=== PATIENT | female | born 1950 | race Caucasian/White ===

== ENCOUNTER 2017-02-27 19:21 | Inpatient (IN) ==
[2017-02-27] MEDS ORDERED: methylPREDNISolone 125 MG/2 ML VIAL IVP ONE (19:22)
[2017-02-27] MEDS ORDERED: Ipratropium/Albuterol Neb 3 ML IH ONE ×2 (19:22→21:09)
--- NOTE | 2017-02-27 19:25 | Emergency Department Note ---
Disposition Clinical Impression: Hypoxia, COPD exacerbation Disposition: Admitted As Inpatient Condition: Good SOB HPI - General Chief Complaint: ED Shortness of Breath/Dyspnea Stated Complaint: PATRICE Time Seen by Provider: 02/27/17 19:23 Source: patient, EMS Mode of arrival: EMS Limitations: no limitations Nursing Notes Reviewed: Yes Vital Signs Reviewed: Yes - History of Present Illness 66-year-old female history of hypertension, COPD with O2 requirement at night who presents to the ER via EMS with a chief complaint of shortness of breath. Patient reports she started getting short of breath yesterday afternoon. Patient reports that it seemed to worsen throughout the night into today. She reports a productive cough with yellow sputum. She denies any fevers or chest pain at home. She has no history of cardiac disease, DVT, PE. When EMS arrived to her house she was hypoxic at 79% on room air. Patient improved with 6 L nasal cannula. She reports prior hospitalization for her COPD. She denies previous intubation for COPD. No other complaints. Pt Subjective Complaint: shortness of breath Onset (ago): day(s) (1) Severity: severe Consistency/Duration: constant Improves with: oxygen Worsens with: nothing Known history of: COPD Associated symptoms: Reports: cough, wheezing, sputum production. Denies: chest pain, fever Treatment prior to arrival: oxygen Cough present: Yes Cough Description: Involuntary Cough Frequency: Intermittent Sputum production: No Sputum Amount: None - Related Data Home oxygen amount: 2 liters (PM) Home Medications Medication Instructions Recorded Confirmed Albuterol Neb [Proventil Neb] 2.5 mg IH Q4H PRN 02/27/17 02/27/17 Albuterol Sulfate [Albuterol 2 puff IH Q4H PRN 02/27/17 02/27/17 Inhaler] Alprazolam [Xanax 0.5 MG Tablet] 0.5 mg PO BID PRN 02/27/17 02/27/17 Budesonide/Formoterol 160/4.5 2 puff IH BIDR 02/27/17 02/27/17 [Symbicort 160/4.5] Furosemide [Lasix] 20 mg PO DAILY 02/27/17 02/27/17 Losartan/HCTZ [Hyzaar 50-12.5 1 each PO DAILY 02/27/17 02/27/17 Tablet] Sertraline [Zoloft] 50 mg PO DAILY 02/27/17 02/27/17 Allergies Allergy/AdvReac Type Severity Reaction Status Date / Time morphine Allergy Vomiting Verified 02/27/17 20:01 Sulfa (Sulfonamide Allergy Hives Verified 02/27/17 20:01 Antibiotics) All systems ED: reviewed and negative except as stated. Constitutional: Denies: fever Cardiovascular: Denies: chest pain Respiratory: Reports: cough, dyspnea, wheezes Gastrointestinal: Denies: abdominal pain, nausea, vomiting, diarrhea Genitourinary: Denies: dysuria Past Medical History - Past Medical History Attestation: Yes The following information was validated with the patient. Source: patient Medical history: Reports: COPD, hypertension Surgical history: Reports: non-contributory Physical Exam - General Limitations: no limitations General appearance: alert, anxious - Head Head exam: atraumatic, normocephalic, normal inspection - Eye Eye exam: Present: normal appearance, EOMI - ENT ENT exam: normal exam - Neck Neck exam: Present: normal inspection - Chest Chest inspection: Present: normal inspection, symmetric chest wall rise - Respiratory Respiratory exam: Present: other (Conversationally dyspneic with diminished breath sounds bilaterally.) - Cardiovascular Cardiovascular exam: Present: regular rate, normal rhythm, normal heart sounds - Abdominal Exam Abdominal exam: Present: soft, Non-Tender. Absent: tenderness - Extremities Exam Extremities exam: Present: normal inspection, full ROM - Expanded Upper Extremity Exam Shoulder exam: Present: normal inspection, full ROM Arm exam: Present: normal inspection, full ROM Elbow exam: Present: normal inspection, full ROM Forearm/Wrist exam: Present: normal inspection, full ROM Hand exam: Present: normal inspection, full ROM - Expanded Lower Extremity Exam Hip/Pelvis exam: Present: normal inspection, full ROM Upper leg exam: Present: normal inspection, full ROM Knee exam: Present: normal inspection, full ROM Lower leg exam: Present: normal inspection, full ROM, swelling (1+ bilateral lower extremity pitting edema) Ankle exam: Present: normal inspection, full ROM Foot/toe exam: Present: normal inspection, full ROM - Neurological Exam Neurological exam: Present: alert - Psychiatric Psychiatric exam: Present: normal affect, normal mood - Skin Skin exam: Present: warm, dry, intact, normal color Course Course Narrative: Patient seen and examined. Vital signs reviewed. We will get an EKG, chest x- ray as well as labs including troponin and BNP. We will get some duonebs and steroids IV. Disposition pending. - Reevaluation(s) Reevaluation #1: Patient was hypoxic on nonrebreather. Placed on BiPAP. Patient agreeable with this. Vital Signs Temperature 0 F L 02/27/17 19:22 Pulse Rate 69 02/27/17 19:22 Respiratory Rate 24 02/27/17 19:22 Blood Pressure 145/72 02/27/17 19:22 O2 Sat by Pulse Oximetry 93 L 02/27/17 19:22 Temperature 99.2 F 02/27/17 19:53 Pulse Rate 77 02/27/17 22:40 Respiratory Rate 18 02/27/17 23:39 Blood Pressure 142/72 02/27/17 23:39 O2 Sat by Pulse Oximetry 89 L 02/27/17 22:40 Oxygen Delivery Oxygen Delivery Bipap Shortness of Breath/Dyspnea - MDM Narrative Medical decision making narrative: 66-year-old female presents to the ER due to shortness of breath via EMS. Reports 1 day history of productive sputum and shortness of breath. Patient was not hypoxic at home 79% on room air. Patient escalated to BiPAP here. EKG is sinus rhythm. Chest x-ray showing more of a congestive heart failure picture. Patient was given 20 mg of Lasix as well as a dose of Levaquin due to her productive cough and possible underlying pneumonia. Admitted to the hospitalist service. - Lab Data Lab results reviewed: Yes I reviewed the patient's lab results. Result diagrams: 02/27/17 19:58 02/27/17 19:58 Lab Results 02/27/17 02/27/17 02/27/17 Range/Units 19:58 19:58 19:58 WBC 15.1 H (4.3-11.1) K/mcL RBC 4.57 (3.82-4.97) M/mcL Hgb 13.9 (11.5-15.4) g/dL Hct 44.0 (35.3-44.9) % MCV 96.3 (83.0-100.0) fL MCH 30.4 (28.0-33.3) pg MCHC 31.6 (31.6-35.5) g/dL RDW 14.6 H (11.5-14.5) % Plt Count 330 (140-400) K/mcL MPV 9.4 (9.4-12.4) fL Immature Gran % 0.4 (0-4) % Seg Neutrophils % 68.9 % Lymphocytes % 21.8 % Monocytes % 6.4 % Eosinophils % 2.2 % Basophils % 0.3 % Neutrophils # 10.4 H (1.6-8.9) K/mcL Lymphocytes # 3.3 (0.6-4.6) K/mcL Monocytes # 1.0 (0.0-1.3) K/mcL Eosinophils # 0.3 (0.0-0.6) K/mcL Basophils # 0.1 (0.0-0.2) K/mcL Sodium 138 (136-145) mEq/L Potassium 3.4 L (3.5-4.5) mEq/L Chloride 91 L (98-109) mEq/L Carbon Dioxide 41 H* (19-29) mEq/L BUN 12 (7-20) mg/dL Creatinine 0.92 (0.57-1.11) mg/dL Est GFR ( Amer) > 60 (> 60) Est GFR (Non-Af Amer) > 60 (> 60) BUN/Creatinine Ratio 13 (6-26) Glucose 94 (70-99) mg/dL Calculated Osmolality 286 (280-300) Calcium 9.0 (8.6-10.8) mg/dL Troponin I 0.02 (0-0.03) ng/mL B-Natriuretic Peptide (0-100) pg/mL 02/27/17 Range/Units 19:58 WBC (4.3-11.1) K/mcL RBC (3.82-4.97) M/mcL Hgb (11.5-15.4) g/dL Hct (35.3-44.9) % MCV (83.0-100.0) fL MCH (28.0-33.3) pg MCHC (31.6-35.5) g/dL RDW (11.5-14.5) % Plt Count (140-400) K/mcL MPV (9.4-12.4) fL Immature Gran % (0-4) % Seg Neutrophils % % Lymphocytes % % Monocytes % % Eosinophils % % Basophils % % Neutrophils # (1.6-8.9) K/mcL Lymphocytes # (0.6-4.6) K/mcL Monocytes # (0.0-1.3) K/mcL Eosinophils # (0.0-0.6) K/mcL Basophils # (0.0-0.2) K/mcL Sodium (136-145) mEq/L Potassium (3.5-4.5) mEq/L Chloride (98-109) mEq/L Carbon Dioxide (19-29) mEq/L BUN (7-20) mg/dL Creatinine (0.57-1.11) mg/dL Est GFR ( Amer) (> 60) Est GFR (Non-Af Amer) (> 60) BUN/Creatinine Ratio (6-26) Glucose (70-99) mg/dL Calculated Osmolality (280-300) Calcium (8.6-10.8) mg/dL Troponin I (0-0.03) ng/mL B-Natriuretic Peptide 118 H (0-100) pg/mL - Radiology Data Radiology results reviewed: Yes I reviewed the patient's radiology results. Chest X-Ray 02/27/17 19:22 IMPRESSION: Findings are most consistent with mild CHF, with bibasilar airspace disease likely reflecting either atelectasis, asymmetric edema, and less likely pneumonia. D/ / 02/27/2017 19:47:22 Faisal Pizarro MD / Gloria Rivera Interpreting Provider: Faisal Pizarro MD - EKG Data EKG attestation: Yes I reviewed and interpreted this EKG. EKG results narrative: EKG demonstrates normal sinus rhythm with a rate of 68 bpm. Normal axis. MI interval 161 QRS duration [address] elevations or depressions. No acute ischemic findings. S.B.A.R. - S.B.A.RShannon Situation: Demographics, MOA Background: Presenting Complaint, Relevant PMH, Meds, & Allergies Assessment: Vital Signs, Course and respsone to treatment, Exam Concerns, Patient/Family Expectation, Pertinant Lab Results, Outstanding Labs Recommendation: Barrier(s) to disposition, Recommendation based on pending studies, treatments, or consults S.B.ARene Report Given to: Dr. Serg Patel Repor Time: 22:59
[2017-02-27 20:24] LABS: Basophils # 0.1 K/mcL (0.0-0.2); Basophils % 0.3 %; Eosinophils # 0.3 K/mcL (0.0-0.6); Eosinophils % 2.2 %; Hemoglobin 13.9 g/dL (11.5-15.4); Immature Granulocytes % 0.4 % (0-4); Lymphocytes # 3.3 K/mcL (0.6-4.6); Lymphocytes % 21.8 %; Mean Corpuscular HGB Conc 31.6 g/dL (31.6-35.5); Mean Corpuscular Hemoglobin 30.4 pg (28.0-33.3); Mean Corpuscular Volume 96.3 fL (83.0-100.0); Mean Platelet Volume 9.4 fL (9.4-12.4); Monocytes % 6.4 %; Neutrophils # 10.4 K/mcL (1.6-8.9); Platelet Count 330 K/mcL (140-400); Red Blood Count 4.57 M/mcL (3.82-4.97); Red Cell Distribution Width 14.6 % (11.5-14.5); Segmented Neutrophils % 68.9 %
[2017-02-27 20:36] LABS: BUN/Creatinine Ratio 13 (6-26); Blood Urea Nitrogen 12 mg/dL (7-20); Chloride 91 mEq/L (98-109); Glucose 94 mg/dL (70-99); Osmolality,Calculated 286 (280-300); Potassium 3.4 mEq/L (3.5-4.5); Sodium 138 mEq/L (136-145); eGFR For African Americans > 60 (> 60); eGFR For Non-African Americans > 60 (> 60)
[2017-02-27 20:39] LABS: Carbon Dioxide 41 mEq/L (19-29)
[2017-02-27] MEDS ORDERED: Levofloxacin 750 MG/150 ML 750 MG/150 ML BAG IVPB ONE (22:10)
--- NOTE | 2017-02-28 00:29 | Emergency Department Note ---
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 66-year-old female presents with concerns of difficulty breathing. EMS states the patient was satting in the 70s upon their arrival. She improved after administration of oxygen and breathing treatments. Patient was given further breathing treatments with albuterol in the emergency department with further improvement. Patient continues to sat 83% on 2 L after treatment with diffuse wheezing in the bilateral posterior lung vargas.. Patient has a history of COPD and states that this is very similar to her previous exacerbations. Wrist x-ray shows increased pulmonary edema and a right pleural effusion. Patient will be given Lasix in the emergency department and Solu-Medrol. Patient comfortable with the plan for admission at Hospital for chelation of care.
[2017-02-28] MEDS ORDERED: Acetaminophen 325 MG TABLET PO PRN (02:49)
[2017-02-28] MEDS ORDERED: Naloxone 0.4 MG/ML INJ IVP PRN (02:49)
[2017-02-28] MEDS ORDERED: Albuterol 2.5 MG/3 ML NEBULIZER IH PRN (02:53)
[2017-02-28] MEDS ORDERED: 0.9 % Sodium Chloride 1,000 ML IVC SCH (03:00)
--- NOTE | 2017-02-28 03:53 | Internal Med History&Physical ---
<Perlita Salazar - Last Filed: 02/28/17 03:48> Date of Encounter: 02/28/17 Time of Encounter: 03:48 Assessment and Plan (1) Acute and chronic respiratory failure Current visit: Yes Status: Acute possible etiology uncontrolled COPD with exacerbation, undiagnosed CHF with vasc congestion, infectious CXR: evidence of b/l airspace disease,atelectasis vs edema vs penumonia on BiPAP [id number], 93% saturation, no acute distress start levaquin bronchodilator therapy solumedrol CO2 41 on chemistry will check ABG continue with BiPAP WBC 15.1 sputum ctx RIP pane IV lasix l Qualifiers: Respiratory failure complication: hypoxia Qualified Code(s): J96.21 - Acute and chronic respiratory failure with hypoxia (2) Hypokalemia Current visit: Yes Status: Acute 3.4 getting lasix will replace after lasix recheck (3) Leukocytosis Current visit: Yes Status: Acute 15.1 starting levaquin Qualifiers: Leukocytosis type: unspecified Qualified Code(s): D72.829 - Elevated white blood cell count, unspecified (4) COPD exacerbation Current visit: Yes Status: Acute (5) Hypoxia Current visit: Yes Status: Acute (6) HTN (hypertension) Current visit: Yes Status: Acute BP 149/73 continue home meds Qualifiers: Hypertension type: essential hypertension Qualified Code(s): I10 - Essential (primary) hypertension (7) Tobacco abuse Current visit: Yes Status: Acute nicotine patch prn (8) DVT prophylaxis Current visit: Yes Status: Acute SCDs SQ heparin (9) Edema due to congestive heart failure Current visit: Yes Status: Suspected pt denies history of CHF or other cardiac diseas CXR with possible pulm vascular congestion with 3+ LE pitting edema IV lasix ECHO for evaluation of EF and cardiac function Internal Medicine - H&P: HPI Chief complaint: dyspnea Admitted From: Home Plans for Post Hospital Care: Home History of present illness: Ms. Riley is a 66 year old female c/o SOB. PMHx poorly controlled COPD, HTN. Presents with c/o worsening of baseline COPD symptoms. Pt states that she has had increased dyspnea on exertion as well as at rest, with white-yellow sputum production, increased wheezing and increased home O2 need(usually on 2L NC) since yesterday. Pt states she usually has at least 1 exacerbation a year, but has never had to be put on BiPAP or have intubation before. Pt currently still smoking 1/2-1ppd. denies recent sick contacts, fever, chill, hemoptysis, night sweats, CP, palpitations, abdominal pain, numbness/tingling. Past Med Surg Social Fam HX - Past Medical History Medical history: COPD, hypertension Psychiatric history: anxiety, depression - Past Surgical History Surgical History: non-contributory - Social History Smoking Status: Current some day smoker Packs per day: 1ppd x45 yrs Smokeless Tobacco Status: No Alcohol use: none Drug use: none Occupational status: retired Current living situation: Home - Family History Mother Hx Family Cardiac Disorders: Yes Internal Medicine - H&P: Meds Albuterol Neb [Proventil Neb] 2.5 mg IH Q4H PRN 02/27/17 [History] Albuterol Sulfate [Albuterol Inhaler] 2 puff IH Q4H PRN 02/27/17 [History] Alprazolam [Xanax 0.5 MG Tablet] 0.5 mg PO BID PRN 02/27/17 [History] Budesonide/Formoterol 160/4.5 [Symbicort 160/4.5] 2 puff IH BIDR 02/27/17 [ History] Furosemide [Lasix] 20 mg PO DAILY 02/27/17 [History] Losartan/HCTZ [Hyzaar 50-12.5 Tablet] 1 each PO DAILY 02/27/17 [History] Sertraline [Zoloft] 50 mg PO DAILY 02/27/17 [History] Allergies morphine Allergy (Verified 02/27/17 20:01) Vomiting Sulfa (Sulfonamide Antibiotics) Allergy (Verified 02/27/17 20:01) Hives All Systems PM: A 10-system review of systems was performed and is negative for pertinent findings except as documented above in the HPI. - Constitutional Constitutional: no chills, no fever(s), no night sweats - EENT Eyes: no change in vision, no discharge, no pain, no photophobia Ears: no ear discharge, no ear pain, no tinnitus Nose, mouth and throat: no dysphagia, no nasal discharge, no neck pain, no sore throat - Cardiovascular Cardiovascular ROS IM: no chest pain, no diaphoresis, no dyspnea, no lightheadedness, no palpitations, no syncope - Respiratory Respiratory: cough, dyspnea, dyspnea on exertion, wheezing, excessive phlegm production, change in phlegm color, no hemoptysis - Gastrointestinal Gastrointestinal: no abdominal pain, no diarrhea, no hematemesis, no hematochezia, no melena, no nausea, no vomiting - Genitourinary Genitourinary: no change in urinary stream, no dysuria, no flank pain, no hematuria - Musculoskeletal Musculoskeletal ROS IM: no numbness, no tingling - Integumentary Integumentary IM: no rash, no unusual bruising - Neurological Neurological ROS: no confusion, no convulsions, no focal weakness, no numbness, no tingling, no tremor(s) - Constitutional Vitals: Temp Pulse Resp BP Pulse Ox 97.6 F 66 22 149/73 92 L 02/28/17 00:43 02/28/17 00:43 02/28/17 00:43 02/28/17 00:43 02/28/17 00:43 General appearance: Present: mild distress, A&O X 3, morbidly obese, pleasant, answers questions appropriately - Head Head exam: Present: atraumatic, normocephalic - Eye Eye exam: Present: PERRL, conjuntiva pink, sclera anicteric Pupils: Present: PERRL - Neck Neck exam general surgery: Present: supple, trachea midline. Absent: lymphadenopathy - Respiratory Respiratory exam: Present: decreased breath sounds, rales, respiratory distress , wheezes, tachypnea. Absent: accessory muscle use - Expanded Respiratory Exam Location: decreased breath sounds: Left, Right, Upper, Lower (diminshed throughout A&P), rales: Left, Right, Lower (bases L>R), wheezes: Left, Right, Upper, Lower (end expiratory A&P) - Cardiovascular Cardiovascular exam: Present: RRR, +S1, +S2. Absent: diastolic murmur, gallop, rubs, systolic murmur - GI/Abdominal GI/Abdominal exam: Present: normal bowel sounds, soft, no peritoneal signs. Absent: distended, tenderness - Extremities Exam Extremities exam: Present: normal capillary refill, pedal edema (3+ pitting b/l) , warm, radial pulses palpable and symetrical. Absent: calf tenderness, cyanotic - Neurological Exam Neurological exam: Present: CN II-XII intact, oriented X3, no focal deficits. Absent: pronater drift, facial droop, speech deficit - Skin Skin exam: Present: diaphoretic, intact, warm Internal Med - H&P Results - Labs CBC & Chem 7: 02/27/17 19:58 02/27/17 19:58 <UlrichRamin Lakia - Last Filed: 02/28/17 05:27> Date of Encounter: 02/28/17 Internal Medicine - H&P: HPI History of present illness: Ms. Riley is a 66 year old female All Systems PM: A 10-system review of systems was performed and is negative for pertinent findings except as documented above in the HPI. - Constitutional Vitals: Temp Pulse Resp BP Pulse Ox 98.2 F 66 17 136/74 94 L 02/28/17 04:29 02/28/17 04:29 02/28/17 04:33 02/28/17 04:29 02/28/17 04:33 Internal Med - H&P Results - Labs CBC & Chem 7: 02/27/17 19:58 02/27/17 19:58 - ABG Interpretation ABG results: 02/28/17 03:55 ABG pH 7.36 ABG pCO2 77 H* ABG pO2 71 L ABG HCO3 43.5 H ABG Total CO2 45.9 H ABG O2 Saturation 93 L ABG Base Excess 13.9 H - Attending Attestation I examined this patient and my medical decision-making was reviewed with the MANAGER [place]/PA/Advanced Practice Nurse/Resident Physician. I agree with the documented findings, disposition and treatment plan as described except to the extent set forth below. COPD active smoker, acute on chronic resp failure. On bipap, patint does not wan to be intubated. She is alert and oriented. Agree with Dr. Salazar.
[2017-02-28 04:04] LABS: ABG Base Excess 13.9 mEq/L (-2.0 to 3.0); ABG HCO3 43.5 mEQ/L (21-27); ABG Oxygen Saturation 93 % (95-98); ABG PH 7.36 pH Units (7.32-7.45); ABG PO2 71 mmHg (85-104); ABG TCO2 45.9 mEq/L (20-26)
[2017-02-28 04:05] LABS: Blood Gas FiO2 50 %
[2017-02-28 04:07] LABS: ABG PCO2 77 mmHg (35-45)
[2017-02-28] MEDS: Ipratropium/Albuterol Neb 3 ML IH SCH ×4 (04:33→21:20)
[2017-02-28] MEDS: Nicotine 21 MG PATCH.TD24 TD PRN (04:39)
[2017-02-28] MEDS: *HR* Heparin 5,000 UNIT/ML VIAL SQ SCH ×2 (04:39→16:50)
[2017-02-28 05:30] LABS: Hematocrit 45.8 % (35.3-44.9); Hemoglobin 14.5 g/dL (11.5-15.4); Mean Corpuscular HGB Conc 31.7 g/dL (31.6-35.5); Mean Corpuscular Hemoglobin 30.3 pg (28.0-33.3); Mean Corpuscular Volume 95.8 fL (83.0-100.0); Mean Platelet Volume 9.2 fL (9.4-12.4); Platelet Count 340 K/mcL (140-400); Red Blood Count 4.78 M/mcL (3.82-4.97); Red Cell Distribution Width 14.6 % (11.5-14.5)
[2017-02-28 05:45] LABS: BUN/Creatinine Ratio 16 (6-26); Blood Urea Nitrogen 12 mg/dL (7-20); Carbon Dioxide 38 mEq/L (19-29); Chloride 90 mEq/L (98-109); Glucose 147 mg/dL (70-99); Osmolality,Calculated 286 (280-300); Potassium 3.9 mEq/L (3.5-4.5); Sodium 137 mEq/L (136-145); eGFR For African Americans > 60 (> 60); eGFR For Non-African Americans > 60 (> 60)
[2017-02-28] MEDS ORDERED: methylPREDNISolone 125 MG/2 ML VIAL IVP SCH (08:00)
[2017-02-28] MEDS: Levofloxacin 750 MG/150 ML 750 MG/150 ML BAG IVPB SCH (09:11)
[2017-02-28] MEDS: Magnesium Sulfate 2 GM in D5% in Water 100 ML IVPB SCH ×3 (09:11→12:22)
[2017-02-28] MEDS: Furosemide 40 MG/4 ML VIAL IVP SCH ×2 (09:11→21:10)
--- NOTE | 2017-02-28 09:12 | Electrocardiograph Report ---
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
[2017-02-28 10:16] LABS: Adenovirus Not Detected (Not Detect); Bordetella Pertussis Not Detected (Not Detect); Chlamydophila pneumoniae Not Detected (Not Detect); Coronavirus 229E Not Detected (Not Detect); Coronavirus HKU1 Not Detected (Not Detect); Coronavirus NL63 Not Detected (Not Detect); Coronavirus OC43 Not Detected (Not Detect); Human Metapneumovirus Not Detected (Not Detect); Human Rhinovirus/Enterovirus Not Detected (Not Detect); Influenza A Subtype 2009 H1 Not Detected (Not Detect); Influenza A Untypeable Not Detected (Not Detect); Influenza B Not Detected (Not Detect); Mycoplasma pneumoniae Not Detected (Not Detect); Parainfluenza Virus 1 Not Detected (Not Detect); Parainfluenza Virus 2 Not Detected (Not Detect); Parainfluenza Virus 3 Not Detected (Not Detect); Parainfluenza Virus 4 Not Detected (Not Detect); Respiratory Syncytial Virus Not Detected (Not Detect)
[2017-02-28] MEDS ORDERED: *HR* LORazepam 2 MG/ML VIAL IVP ONE (11:55)
--- NOTE | 2017-02-28 15:06 | Event Note ---
Date of Encounter: 02/28/17 Time of Encounter: 15:02 jaye seen at the bedside, reports that she feels [facility] better than yesterday. admitted for acute respiratory failure 2/2 COPD exacerbation. does not appear to be in acute respiratory distress however says that she takes meds for anxiety at home. she is sating 95% on 50% fio2 on BIPAP ABG shows hypercapnea with no acidosis. alert, awake and orientedx3. respiratory panel is negative CXR negative for pneumonia but shows mild CHF, will continue lasix at 40mg IV bid for now and will transition to PO at dc. will continue duonebs, decrease steroids to 60q8h,levoflox for 5 days, restart her xanax and wean off BIPAP as able. titrate o2 to maintain wallace 88-92%. follow ECHO.
[2017-02-28] MEDS: methylPREDNISolone 125 MG/2 ML VIAL IVP SCH (16:50)
[2017-03-01] MEDS: methylPREDNISolone 125 MG/2 ML VIAL IVP SCH ×3 (01:39→17:07)
[2017-03-01] MEDS: Ipratropium/Albuterol Neb 3 ML IH SCH ×4 (04:30→22:39)
[2017-03-01] MEDS: *HR* Heparin 5,000 UNIT/ML VIAL SQ SCH ×3 (05:30→17:05)
[2017-03-01] MEDS: Furosemide 40 MG/4 ML VIAL IVP SCH ×2 (09:36→20:49)
[2017-03-01] MEDS: Losartan/HCTZ 50-12.5 TABLET PO SCH (09:36)
[2017-03-01] MEDS: Levofloxacin 750 MG/150 ML 750 MG/150 ML BAG IVPB SCH (09:37)
[2017-03-01 09:46] LABS: Basophils % 0.1 %; Hematocrit 48.5 % (35.3-44.9); Hemoglobin 14.4 g/dL (11.5-15.4); Immature Granulocytes % 0.6 % (0-4); Lymphocytes # 1.3 K/mcL (0.6-4.6); Lymphocytes % 7.6 %; Mean Corpuscular HGB Conc 29.7 g/dL (31.6-35.5); Mean Corpuscular Hemoglobin 28.9 pg (28.0-33.3); Mean Corpuscular Volume 97.2 fL (83.0-100.0); Mean Platelet Volume 9.1 fL (9.4-12.4); Monocytes # 0.6 K/mcL (0.0-1.3); Monocytes % 3.3 %; Platelet Count 369 K/mcL (140-400); Red Blood Count 4.99 M/mcL (3.82-4.97); Red Cell Distribution Width 14.4 % (11.5-14.5); Segmented Neutrophils % 88.4 %
[2017-03-01 09:59] LABS: BUN/Creatinine Ratio 23 (6-26); Blood Urea Nitrogen 18 mg/dL (7-20); Calcium 8.8 mg/dL (8.6-10.8); Chloride 88 mEq/L (98-109); Glucose 173 mg/dL (70-99); Osmolality,Calculated 292 (280-300); Potassium 4.1 mEq/L (3.5-4.5); Sodium 138 mEq/L (136-145); eGFR For African Americans > 60 (> 60); eGFR For Non-African Americans > 60 (> 60)
[2017-03-01 10:03] LABS: Carbon Dioxide 42 mEq/L (19-29)
--- NOTE | 2017-03-01 16:09 | Internal Med Progress Note ---
Date of Encounter: 03/01/17 Time of Encounter: 16:06 - Assessment and plan (1) COPD exacerbation Current Visit: Yes Status: Acute Assessment and plan: doing [facility] better jorge decrase methylprednisone to 40 every 8. Saturating 90% on 4 L, titrate oxygen to maintain sats between 88 and 92%. We will continue levofloxacin to complete 5 days. Respiratory panel is negative. has mild leukocytosis possibly secondary to steroids. cxr shows mild CHF. (2) Acute and chronic respiratory failure Current Visit: Yes Status: Acute Assessment and plan: as above sHe is able to be weaned off BiPAP, currently tolerating 4l of nasal cannula and saturating 90%. We will continue to monitor on nasal cannula Qualifiers: Respiratory failure complication: hypoxia Qualified Code(s): J96.21 - Acute and chronic respiratory failure with hypoxia (3) HTN (hypertension) Current Visit: Yes Status: Acute Qualifiers: Hypertension type: essential hypertension Qualified Code(s): I10 - Essential (primary) hypertension (4) CHF (congestive heart failure) Current Visit: Yes Status: Acute Assessment and plan: Patient denies any history of prior CHF. No echo in the system, awaiting results done yesterday. Chest x-ray done this admission shows pulmonary vascular congestion with mild CHF. currently on 40 IV twice a day of Lasix, will continue the same. Qualifiers: Congestive heart failure type: unspecified congestive heart failure type Congestive heart failure chronicity: unspecified congestive heart failure chronicity Qualified Code(s): I50.9 - Heart failure, unspecified - Time Spent With Patient 25 - 35 minutes - Subjective Interval history: Patient admitted for acute exacerbation of COPD. His mean weaned off BiPAP and is currently tolerating oxygen at 4 L. Denies any complaints, denies any chest pain or shortness of breath this morning. - Constitutional Vitals: Temp Pulse Resp BP Pulse Ox 98.5 F 76 20 131/73 90 03/01/17 15:47 03/01/17 15:47 03/01/17 15:47 03/01/17 15:47 03/01/17 15:47 General appearance: Present: A&O X 3, morbidly obese, pleasant, no acute distress, answers questions appropriately Exam: - Head Head exam: Present: atraumatic, normocephalic - Eye Eye exam: Present: PERRL, conjuntiva pink, sclera anicteric Pupils: Present: PERRL - Neck Neck exam general surgery: Present: supple, trachea midline. Absent: lymphadenopathy - Respiratory Respiratory exam: Present: decreased breath sounds, mild wheezing Absent: accessory muscle use - Expanded Respiratory Exam Location: decreased breath sounds: Left, Right, Upper, Lower (diminshed throughout A&P), rales: Left, Right, Lower (bases L>R), wheezes: Left, Right, Upper, Lower (end expiratory A&P) - Cardiovascular Cardiovascular exam: Present: RRR, +S1, +S2. Absent: diastolic murmur, gallop, rubs, systolic murmur - GI/Abdominal GI/Abdominal exam: Present: normal bowel sounds, soft, no peritoneal signs. Absent: distended, tenderness - Extremities Exam Extremities exam: Present: normal capillary refill, pedal edema (3+ pitting b/l) , warm, radial pulses palpable and symetrical. Absent: calf tenderness, cyanotic - Neurological Exam Neurological exam: Present: CN II-XII intact, oriented X3, no focal deficits. Absent: pronater drift, facial droop, speech deficit - Skin Skin exam: Present: diaphoretic, intact, warm Internal Medicine: Result - Labs CBC & Chem 7: 03/01/17 09:18 03/01/17 09:18 Labs: Short CBC 03/01/17 Range/Units 09:18 WBC 17.0 H (4.3-11.1) K/mcL Hgb 14.4 (11.5-15.4) g/dL Hct 48.5 H (35.3-44.9) % Plt Count 369 (140-400) K/mcL Neutrophils # 15.0 H (1.6-8.9) K/mcL BMP 03/01/17 09:18 Sodium 138 Potassium 4.1 Chloride 88 L Carbon Dioxide 42 H* BUN 18 Creatinine 0.79 Glucose 173 H Calcium 8.8 - ABG Interpretation ABG results: ABG ABG pH 7.36 pH Units (7.32-7.45) 02/28/17 03:55 ABG pCO2 77 mmHg (35-45) H* 02/28/17 03:55 ABG pO2 71 mmHg (85-104) L 02/28/17 03:55 ABG O2 Saturation 93 % (95-98) L 02/28/17 03:55 Consult Discharge Plan - Plan Referrals: Stefanie Red CNP [Primary Care Provider] - (Web Request made 02-28-17)
[2017-03-01] MEDS: ALPRAZolam 0.5 MG TABLET PO PRN (16:17)
[2017-03-02] MEDS ORDERED: MethylPREDNISolone 40 MG/ML VIAL IVP SCH
[2017-03-02] MEDS: methylPREDNISolone 125 MG/2 ML VIAL IVP SCH ×2 (02:02→09:13)
[2017-03-02] MEDS: Ipratropium/Albuterol Neb 3 ML IH SCH ×4 (04:09→22:48)
[2017-03-02] MEDS: *HR* Heparin 5,000 UNIT/ML VIAL SQ SCH ×2 (06:17→17:16)
[2017-03-02] MEDS: Furosemide 40 MG/4 ML VIAL IVP SCH ×2 (09:03→22:02)
[2017-03-02] MEDS: Losartan/HCTZ 50-12.5 TABLET PO SCH (09:03)
[2017-03-02 09:04] LABS: Basophils % 0.1 %; Eosinophils % 0.1 %; Hematocrit 50.6 % (35.3-44.9); Hemoglobin 15.3 g/dL (11.5-15.4); Immature Granulocytes % 0.5 % (0-4); Lymphocytes # 1.2 K/mcL (0.6-4.6); Lymphocytes % 7.9 %; Mean Corpuscular HGB Conc 30.2 g/dL (31.6-35.5); Mean Corpuscular Hemoglobin 29.3 pg (28.0-33.3); Mean Corpuscular Volume 96.9 fL (83.0-100.0); Monocytes # 0.5 K/mcL (0.0-1.3); Monocytes % 3.5 %; Neutrophils # 13.5 K/mcL (1.6-8.9); Platelet Count 363 K/mcL (140-400); Red Blood Count 5.22 M/mcL (3.82-4.97); Red Cell Distribution Width 14.4 % (11.5-14.5); Segmented Neutrophils % 87.9 %
[2017-03-02] MEDS: Levofloxacin 750 MG/150 ML 750 MG/150 ML BAG IVPB SCH (09:04)
[2017-03-02 09:14] LABS: BUN/Creatinine Ratio 37 (6-26); Blood Urea Nitrogen 26 mg/dL (7-20); Chloride 88 mEq/L (98-109); Glucose 117 mg/dL (70-99); Osmolality,Calculated 290 (280-300); Potassium 4.6 mEq/L (3.5-4.5); Sodium 137 mEq/L (136-145); eGFR For African Americans > 60 (> 60); eGFR For Non-African Americans > 60 (> 60)
[2017-03-02 09:16] LABS: Carbon Dioxide 42 mEq/L (19-29)
[2017-03-02] MEDS ORDERED: Losartan/HCTZ 50-12.5 TABLET PO SCH (09:45)
--- NOTE | 2017-03-02 09:59 | ECHO - Doppler Report ---
Echocardiogram Name: Cheli Riley Date of Study: 02/28/2017 Date: 1950 Ht: 68.0 in Medical Record#: [id number] Age: 66 Wt: 244.0 lb Gender: Female BSA: 2.22 Order #: [id number] Location: [facility] Room #: [id number] Reading Physician: Dayanara Dejesus DO Vegetable Loader: Makenna Kirby Ordering Physician: Perlita Salazar DO Primary Physician: Stefanie Red CNP Indications: Evaluate for CHF/EF Impressions: LVEF 60%. Normal left ventricular size and systolic function. Normal right ventricular size and function. Mild tricuspid regurgitation. Moderate pulmonary hypertension. Left Ventricular Wall Motion: Rest Echo Findings The mid inferior lateral and basal inferior lateral mack were not visualized. All other wall segments showed normal motion. Findings: Study Quality * Technically sub-optimal due to body habitus. ECG Findings * Normal sinus rhythm. Mitral Valve * Normal mitral valve structure. * No mitral stenosis. * No mitral regurgitation. Aortic Valve * No aortic regurgitation. * Aortic valve not well visualized. * No aortic stenosis. Tricuspid Valve * Tricuspid valve not well visualized. * Mild tricuspid regurgitation. * Estimated RA pressure is 3 mmHg. * Estimated RVSP is 51 mmHg. * Moderate pulmonary hypertension. Pulmonic Valve * Pulmonic valve is not well visualized. * No pulmonic stenosis. * No pulmonic regurgitation. Pulmonary Artery * Pulmonary artery not well visualized. Aorta * Not well visualized. Left Atrium * Normal left atrial size. Right Atrium * Normal right atrial size. Left Ventricle * LVEF 60%. * Moderate left ventricular diastolic dysfunction. * Normal LV size and wall thickness. Right Ventricle * Normal right ventricular structure and function. Interatrial Septum * No evidence of PFO by color Doppler. IVC * Normal IVC dimensions and inspiratory collapse. Pericardium * There is no pericardial effusion present. History Hypertension History of Smoking Years 40 Packs 1 Family History of CAD 08/27/2014 a Previous Echo was performed. Measurements: BP: 145/ 67 2D Normal Values IVSd: .90 cm 0.6 - 1.0 cm LVIDd: 4.90 cm 3.7 - 5.6 cm LVPWd: 1.00 cm 0.6 - 1.1 cm LVIDs: 2.80 cm 1.5 - 3.6 cm LA: 3.90 cm 2.0 - 4.0cm %FS: 42.90 cm >25 % LA volume: 71 Mitral Valve Peak E:1.26 m/sec Peak A:.96 m/sec E/A Ratio:1.3 Peak E' Lat Carlton:8.29 cm/s Peak E' Med Carlton:5.95 cm/s E/E' Lat Ratio:15.2 E/E' Med Ratio:21.2 Tricuspid Valve TV Regurg Peak Grad: 48.00mmHg TV Regurg Peak Carlton: 3.45m/sec Updated by Dayanara Dejesus on 03/02/2017 9:52:58 AM electronically signed on 03/02/2017 9:54:25 AM with status of Final Wall Motion Peterson: 1=Normal, 2=Hypokinesis, 3=Akinesis, 4=Dyskinesis, 5=Aneurysmal, 6=Hyperkinetic, X=Not Visualized (Blank)=Missing
[2017-03-02] MEDS: Budesonide/Formoterol 160/4.5 MDI IH SCH ×2 (10:24→22:49)
[2017-03-02] MEDS: Nicotine 21 MG PATCH.TD24 TD PRN (10:37)
[2017-03-02] MEDS: predniSONE 20 MG TABLET PO SCH (15:21)
--- NOTE | 2017-03-02 16:41 | Internal Med Progress Note ---
Date of Encounter: 03/02/17 Time of Encounter: 16:39 - Assessment and plan (1) COPD exacerbation Current Visit: Yes Status: Acute Assessment and plan: doing much better will taper sterids to prednisone 60mg daily Saturating 90% on 4 L, titrate oxygen to maintain sats between 88 and 92%. We will continue levofloxacin to complete 5 days. Respiratory panel is negative. has mild leukocytosis possibly secondary to steroids. cxr shows mild CHF. (2) Acute and chronic respiratory failure Current Visit: Yes Status: Acute Assessment and plan: as above sHe is able to be weaned off BiPAP, currently tolerating 4l of nasal cannula and saturating 90%. We will continue to monitor on nasal cannula Qualifiers: Respiratory failure complication: hypoxia Qualified Code(s): J96.21 - Acute and chronic respiratory failure with hypoxia (3) HTN (hypertension) Current Visit: Yes Status: Acute Qualifiers: Hypertension type: essential hypertension Qualified Code(s): I10 - Essential (primary) hypertension (4) CHF (congestive heart failure) Current Visit: Yes Status: Acute Assessment and plan: Patient denies any history of prior CHF. No echo in the system, ECHO done shows preserved EF however diastolic function was not assessed. Chest x-ray done this admission shows pulmonary vascular congestion with mild CHF. currently on 40 IV twice a day of Lasix, will continue the same. Change to oral at the time of discharge. Qualifiers: Congestive heart failure type: unspecified congestive heart failure type Congestive heart failure chronicity: unspecified congestive heart failure chronicity Qualified Code(s): I50.9 - Heart failure, unspecified - Time Spent With Patient 25 - 35 minutes - Subjective Interval history: Patient admitted for acute exacerbation of COPD. weaned off BiPAP and is currently tolerating oxygen at 4 L. Denies any complaints, denies any chest pain or shortness of breath this morning. asking for nicotine patch. - Constitutional Vitals: Temp Pulse Resp BP Pulse Ox 98.0 F 74 20 125/66 90 03/02/17 14:56 03/02/17 14:56 03/02/17 14:56 03/02/17 14:56 03/02/17 14:56 General appearance: Present: A&O X 3, morbidly obese, pleasant, no acute distress, answers questions appropriately Exam: - Head Head exam: Present: atraumatic, normocephalic - Eye Eye exam: Present: PERRL, conjuntiva pink, sclera anicteric Pupils: Present: PERRL - Neck Neck exam general surgery: Present: supple, trachea midline. Absent: lymphadenopathy - Respiratory Respiratory exam: Present: decreased breath sounds, mild wheezing Absent: accessory muscle use - Cardiovascular Cardiovascular exam: Present: RRR, +S1, +S2. Absent: diastolic murmur, gallop, rubs, systolic murmur - GI/Abdominal GI/Abdominal exam: Present: normal bowel sounds, soft, no peritoneal signs. Absent: distended, tenderness - Extremities Exam Extremities exam: Present: normal capillary refill, pedal edema (3+ pitting b/l) , warm, radial pulses palpable and symetrical. Absent: calf tenderness, cyanotic - Neurological Exam Neurological exam: Present: CN II-XII intact, oriented X3, no focal deficits. Absent: pronater drift, facial droop, speech deficit - Skin Skin exam: Present: diaphoretic, intact, warm Internal Medicine: Result - Labs CBC & Chem 7: 03/02/17 08:38 03/02/17 08:38 Labs: Short CBC 03/02/17 Range/Units 08:38 WBC 15.4 H (4.3-11.1) K/mcL Hgb 15.3 (11.5-15.4) g/dL Hct 50.6 H (35.3-44.9) % Plt Count 363 (140-400) K/mcL Neutrophils # 13.5 H (1.6-8.9) K/mcL BMP 03/02/17 08:38 Sodium 137 Potassium 4.6 H Chloride 88 L Carbon Dioxide 42 H* BUN 26 H Creatinine 0.70 Glucose 117 H Calcium 9.0 - ABG Interpretation ABG results: ABG ABG pH 7.36 pH Units (7.32-7.45) 02/28/17 03:55 ABG pCO2 77 mmHg (35-45) H* 02/28/17 03:55 ABG pO2 71 mmHg (85-104) L 02/28/17 03:55 ABG O2 Saturation 93 % (95-98) L 02/28/17 03:55 - Impressions Impressions Chest X-Ray 03/01/17 16:12 IMPRESSION: 1. Mild cardiomegaly with bilateral effusions and unchanged suspected interstitial pulmonary edema, suggesting congestive heart failure. 2. Unchanged bibasilar airspace opacities most likely representing atelectasis. D/ / Carrillo Poon MD / Carrillo Poon MD Interpreting Provider: Carrillo Poon MD Consult Discharge Plan - Plan Referrals: Stefanie Red, LEATHER CRAFTSMAN [Primary Care Provider] - (Web Request made 02-28-17)
[2017-03-03] MEDS: Ipratropium/Albuterol Neb 3 ML IH SCH ×3 (03:43→15:47)
[2017-03-03] MEDS: *HR* Heparin 5,000 UNIT/ML VIAL SQ SCH (05:18)
[2017-03-03 08:18] LABS: Basophils % 0.1 %; Hematocrit 51.6 % (35.3-44.9); Hemoglobin 15.7 g/dL (11.5-15.4); Immature Granulocytes % 0.4 % (0-4); Immature Platelets 2.2 % (1.1-6.1); Lymphocytes # 3.8 K/mcL (0.6-4.6); Lymphocytes % 22.9 %; Mean Corpuscular HGB Conc 30.4 g/dL (31.6-35.5); Mean Corpuscular Hemoglobin 29.1 pg (28.0-33.3); Mean Corpuscular Volume 95.6 fL (83.0-100.0); Mean Platelet Volume 8.7 fL (9.4-12.4); Monocytes # 1.8 K/mcL (0.0-1.3); Monocytes % 10.7 %; Neutrophils # 10.8 K/mcL (1.6-8.9); Platelet Count 376 K/mcL (140-400); Red Cell Distribution Width 14.4 % (11.5-14.5); Segmented Neutrophils % 65.9 %
[2017-03-03 08:41] LABS: BUN/Creatinine Ratio 33 (6-26); Blood Urea Nitrogen 25 mg/dL (7-20); Calcium 9.5 mg/dL (8.6-10.8); Chloride 87 mEq/L (98-109); Glucose 82 mg/dL (70-99); Osmolality,Calculated 287 (280-300); Potassium 4.1 mEq/L (3.5-4.5); Sodium 137 mEq/L (136-145); eGFR For African Americans > 60 (> 60); eGFR For Non-African Americans > 60 (> 60)
[2017-03-03 08:47] LABS: Carbon Dioxide 43 mEq/L (19-29)
[2017-03-03] MEDS: Budesonide/Formoterol 160/4.5 MDI IH SCH (09:08)
[2017-03-03] MEDS: Losartan/HCTZ 50-12.5 TABLET PO SCH (09:13)
[2017-03-03] MEDS: Furosemide 40 MG/4 ML VIAL IVP SCH (09:13)
[2017-03-03] MEDS: predniSONE 20 MG TABLET PO SCH (09:13)
[2017-03-03] MEDS: Levofloxacin 750 MG/150 ML 750 MG/150 ML BAG IVPB SCH (09:14)
[2017-03-03] MEDS: ALPRAZolam 0.5 MG TABLET PO PRN (09:32)
--- NOTE | 2017-03-03 09:42 | Discharge Summary ---
Date of Encounter: 03/03/17 Time of Encounter: 09:40 - Discharge Diagnosis (1) COPD exacerbation Priority: Primary Status: Acute (2) Acute and chronic respiratory failure Priority: Primary Status: Acute Qualifiers: Respiratory failure complication: hypoxia Qualified Code(s): J96.21 - Acute and chronic respiratory failure with hypoxia (3) HTN (hypertension) Priority: Secondary Status: Acute Qualifiers: Hypertension type: essential hypertension Qualified Code(s): I10 - Essential (primary) hypertension (4) CHF (congestive heart failure) Priority: Secondary Status: Acute Qualifiers: Congestive heart failure type: unspecified congestive heart failure type Congestive heart failure chronicity: unspecified congestive heart failure chronicity Qualified Code(s): I50.9 - Heart failure, unspecified - Discharge Medications Prescriptions: Furosemide [Lasix] 40 mg PO DAILY #60 tablet Levofloxacin 750 mg PO DAILY #3 tablet PredniSONE See Taper PO DAILY #65 tablet Home Medications: Albuterol Neb [Proventil Neb] 2.5 mg IH Q4H PRN 02/27/17 [History] Albuterol Sulfate [Albuterol Inhaler] 2 puff IH Q4H PRN 02/27/17 [History] Alprazolam [Xanax 0.5 MG Tablet] 0.5 mg PO BID PRN 02/27/17 [History] Budesonide/Formoterol 160/4.5 [Symbicort 160/4.5] 2 puff IH BIDR 02/27/17 [ History] Losartan/HCTZ [Hyzaar 50-12.5 Tablet] 1 each PO DAILY 02/27/17 [History] Sertraline [Zoloft] 50 mg PO DAILY 02/27/17 [History] Furosemide [Lasix] 40 mg PO DAILY #60 tablet 03/03/17 [Rx] Levofloxacin 750 mg PO DAILY #3 tablet 03/03/17 [Rx] PredniSONE See Taper PO DAILY #65 tablet 03/03/17 [Rx] Allergies/Adverse Reactions: Allergies morphine Allergy (Verified 02/27/17 20:01) Vomiting Sulfa (Sulfonamide Antibiotics) Allergy (Verified 02/27/17 20:01) Hives Date of admission: 02/28/17 06:10 Primary care physician: Stefanie Red CNP Consults: 03/01/17 12:17 Consult to Occupational Therapy [CONS] Routine Comment: Evaluate, develop and implement POC Consult to Physical Therapy [CONS] Routine Comment: Evaluate, develop and implement POC Discharging clinician: Pedro Lemus Anticipated date of discharge: 03/03/17 - Patient Status Disposition: Home, Self-Care Condition: Fair Functional capacity at discharge: independent ambulation Overall status at discharge: patient is back to baseline - Discharge Instructions Instructions: Furosemide (By mouth), Prednisone (By mouth), Levofloxacin (By mouth), Heart Failure (DC), Chronic Obstructive Pulmonary Disease (DC) Follow Up With: Stefanie Red CNP [Primary Care Provider] - 03/10/17 10:40 am (Web Request made 02-28-17) Forms: ED Satisfaction Letter - Diet and Activity Activity: resume usual activities as tolerated Diet: other (fluid restriction, no added salt.) Interval History: 66 y/o woman admitted for acute respiratory failure 2/2 COPD exacerbation. on presenetation, she was placed on BIPAP support. ABG shows chronic hypercapnea with no acidosis. respiratory panel is negative CXR negative for pneumonia but shows mild CHF, was started on lasix at 40mg IV bid . ECHO was done that shows normal LVEF , Diastolic fxn not assesed. was treated with duonebs, IV steroids 60q8h,levoflox for 5 days. she imrpoved on above treatment, she has h/o chronic COPD and currently is in stable condition. she will require oxygen at 3 l via NC continuous at the time of dc. she is being dc in stable condition. Hospital course: Ms. Riley is a 66 year old female Time spent discussing smoking cessation with patient: more than 10 minutes - Time Spent with Patient Total time spent providing and/or coordinating discharge services: Greater than 30 minutes - Constitutional Vitals: Temp Pulse Resp BP Pulse Ox 98.6 F 70 18 132/56 90 03/03/17 08:12 03/03/17 08:12 03/03/17 09:10 03/03/17 08:12 03/03/17 09:10 General appearance: Present: A&O X 3, morbidly obese, pleasant, no acute distress, answers questions appropriately Exam: neck- supple chest- b/l decreased breath sounds at the bases, no wheezing cvs-s1 and s2, no m/r/g abd-soft, non tender , bs are present ext- no edema
[2017-03-03 11:42] VITALS: BP 117/63
== END 2017-03-03 16:40 | disposition home or self-care (01) | DRG 189 ==
LOC: 2ANU 19:21 → EMEROO 19:21 → 2ANU 02-28 00:10
PROVIDERS: ADMIT Internal Medicine; ATTEND Internal Medicine Endocrinology, Diabetes & Metabolism